=== PATIENT | male | born 1985 | race Caucasian/White ===

== ENCOUNTER 2018-02-09 01:18 | Emergency (ER) | payer OTHER, MEDICAID ==
[~2018-02-09] VITALS: Ht 190.5 cm; Wt 100.0 kg
[2018-02-09 01:22] VITALS: BP 142/79
[2018-02-09] MEDS ORDERED: LIDOCAINE 1%-EPI 1:100K, 30ML ONE (01:30)
[2018-02-09] MEDS ORDERED: DIPH,PERTUSS(ACELL),TET VAC/PF 0.5 ML IM-VACC ONE ×2 (01:31→02:00)
[2018-02-09] MEDS ORDERED: DIPHTHERIA-TETANUS ADULT 0.5ML IM-VACC ONE (02:00)
[2018-02-09] MEDS ORDERED: LIDOCAINE 1%-EPI 1:100K, 20ML INFIL ONE (02:00)
[2018-02-09] MEDS ORDERED: BACITRACIN ZINC OINT 500U/GM, 0.9 GM ONE (03:05)
== END 2018-02-09 03:24 | disposition home or self-care (01) ==
LOC: ED 01:25
DX: S01.112A Laceration without foreign body of left eyelid and periocular area, initial encounter (principal); Y04.0XXA Assault by unarmed brawl or fight, initial encounter; Y93.89 Activity, other specified; Y99.8 Other external cause status; Y92.89 Other specified places as the place of occurrence of the external cause
CPT/HCPCS: 12013; 70450; 70486; 72125; 90471; 90714

== ENCOUNTER 2018-04-02 15:57 | Emergency (ER) | payer MEDICAID, OTHER ==
[~2018-04-02] VITALS: Ht 182.9 cm; Wt 100.8 kg
[2018-04-02 16:09] VITALS: BP 133/81
[2018-04-02] MEDS ORDERED: AZITHROMYCIN 500 MG TABLET PO ONE (16:30)
[2018-04-02] MEDS ORDERED: CEFTRIAXONE 250 MG IM ONE (16:30)
[2018-04-02] MEDS ORDERED: AZITHROMYCIN 500 MG TABLET ONE (16:34)
[2018-04-02] MEDS ORDERED: CEFTRIAXONE 250 MG ONE (16:34)
[2018-04-02] MEDS ORDERED: LIDOCAINE-MPF 2%, 2ML ONE (16:34)
[2018-04-02 16:51] LABS: MICROSCOPIC NOT IND
[2018-04-02 17:03] LABS: CULTURE INDICATED? NO
== END 2018-04-02 16:48 | disposition home or self-care (01) ==
LOC: ED 16:10
DX: N34.1 Nonspecific urethritis (principal); F17.200 Nicotine dependence, unspecified, uncomplicated; Z91.013 Allergy to seafood; Z91.041 Radiographic dye allergy status
CPT/HCPCS: 81003; 87491; 87591; 96372; 99284; J0696